=== PATIENT | female | born 1985 | race African-American/Black ===

== ENCOUNTER 2020-02-11 16:20 | Emergency (ER) | payer SELFPAY ==
[~2020-02-11] VITALS: Ht 167.6 cm; Wt 73.0 kg
[2020-02-11] MEDS ORDERED: HYDROCODONE/ACETAMINOPHEN 5/325MG TABLET PO ONE (18:30)
[2020-02-11 19:54] VITALS: BP 144/64
== END 2020-02-11 19:54 | disposition home or self-care (01) ==
LOC: ER 16:20
DX: S16.1XXA Strain of muscle, fascia and tendon at neck level, initial encounter (principal); V43.52XA Car driver injured in collision with other type car in traffic accident, initial encounter; Y93.89 Activity, other specified; Y92.488 Other paved roadways as the place of occurrence of the external cause
CPT/HCPCS: 71045; 72040; 72070; 73030; 81025; 99284